=== PATIENT | male | born 1955 | race Caucasian/White ===

== ENCOUNTER 2021-04-02 07:46 | Outpatient (CLI) | payer OTHER | END 2021-04-02 07:47 | disposition home or self-care (01) | LOC: CSHCT 07:46 | DX: Z12.2 Encounter for screening for malignant neoplasm of respiratory organs (principal); Z87.891 Personal history of nicotine dependence; I77.810 Thoracic aortic ectasia | CPT/HCPCS: 71271 ==

== ENCOUNTER 2022-10-12 09:49 | Outpatient (CLI) | payer OTHER ==
[2022-10-12] MEDS ORDERED: Iopamidol 300 61% 100 ML VIAL FS ONE (11:31)
== END 2022-10-12 09:50 | disposition home or self-care (01) ==
LOC: CSHCT 09:49
PROVIDERS: ATTEND Family Medicine
DX: R91.8 Other nonspecific abnormal finding of lung field (principal); J98.6 Disorders of diaphragm; J98.11 Atelectasis
CPT/HCPCS: 71260; 82565; Q9967

== ENCOUNTER 2023-04-04 14:18 | Outpatient (CLI) | payer OTHER | END 2023-04-04 14:19 | disposition home or self-care (01) | LOC: CSHRAD 14:18 | PROVIDERS: ATTEND Family Medicine | DX: M25.551 Pain in right hip (principal) ==